=== PATIENT | male | born 1995 | race Caucasian/White ===

== ENCOUNTER → 2019-11-14 | Emergency (ER) | payer SELFPAY ==
[~2019-11-14] VITALS: Ht 180.3 cm; Wt 121.6 kg
[~2019-11-14] MED LIST: CLINDAMYCIN HC150 MG PO
--- NOTE | 2019-11-14 10:32 | Emergency Department Note ---
History of Present Illnes History of Present Illness Chief Complaint: General Medicine Complaints History of Present Illness This is a 24 year old male Chief Complaint Comment PATIENT IN FROM HOME WITH COMPLAINTS OF AN ABSCESS TO LOWER BACK; STATES STARTED ON WEDNESDAY AND IS GETTING BIGGER AND MORE PAINFUL. Historian: Patient Arrival Mode: Car Onset (how long ago): day(s) (3) Location: Lower back Quality: Sharp Radiation: Reports non-radiation Severity: mild Onset quality: gradual Duration (how long): day(s) (3) Timing of current episode: constant Progression: worsening Chronicity: new Context: Denies recent illness, Denies recent surgery Relieving factors: none Exacerbating factors: none Associated symptoms: Reports denies other symptoms Treatments prior to arrival: none Past Medical/Family History Physician Review I have reviewed the patient's past medical and family history. Any updates have been documented here. Past Medical History Recent Fever: No Clinical Suspicion of Infectio: No New/Unexplained Change in Ment: No Past Medical History: None Past Surgical History: None Social History Smoking Cessation: Never Smoker Counseling Performed: No Alcohol Use: Social Any Illegal Drug Use: Yes (MARIJUANA) Other Any Pre-Existing Lines (PICC,: No Review of Systems Review of Systems Constitutional: Reports no symptoms EENTM: Reports no symptoms Cardiovascular: Reports no symptoms Respiratory: Reports no symptoms Gastrointestinal: Reports no symptoms Genitourinary: Reports no symptoms Musculoskeletal: Reports no symptoms Integumentary: Reports as per HPI Neurological: Reports no symptoms Psychological: Reports no symptoms Endocrine: Reports no symptoms Hematological/Lymphatic: Reports no symptoms Physical Exam Related Data Allergies: Coded Allergies: Penicillins (Verified Allergy, Unknown, 11/14/19) amoxicillin (Verified Allergy, Unknown, 11/14/19) Triage Vital Signs Vital Signs Date Time Temp Pulse Resp B/P (MAP) Pulse Ox O2 Delivery O2 Flow Rate FiO2 11/14/19 10:15 98.8 81 18 152/80 99 Room Air Vital signs reviewed: Yes Physical Exam CONSTITUTIONAL Constitutional: Present well-developed, Present well-nourished HENT HENT: Present normocephalic, Present atraumatic, Present oropharynx clear/moist, Present nose normal HENT L/R: Present left ext ear normal, Present right ext ear normal EYES Eyes: Reports PERRL, Reports conjunctivae normal NECK Neck: Present ROM normal PULMONARY Pulmonary: Present effort normal, Present breath sounds normal CARDIOVASCULAR Cardiovascular: Present regular rhythm, Present heart sounds normal, Present capillary refill normal, Present normal rate GASTROINTESTINAL Abdominal: Present soft, Present nontender, Present bowel sounds normal GENITOURINARY Genitourinary: Present exam deferred SKIN Skin: Present warm, Present dry, Present lesion (Abscess midline, lower back) MUSCULOSKELETAL Musculoskeletal: Present ROM normal NEUROLOGICAL Neurological: Present alert, Present oriented x 3, Present no gross motor or sensory deficits PSYCHOLOGICAL Psychological: Present mood/affect normal, Present judgement normal Procedures Procedures Procedure: Pilonidal abscess drained with 11 blade scalpel after 1% lidocaine 5mL administered. Large amount of purulent drainage noted. Packed with iodoform gauze. Assessment & Plan Medical Decision Making MDM 24-year-old male presents for large pilonidal abscess. This was drained as noted in the procedure note. He'll be prescribed clindamycin and will follow up with his primary care doctor for packing removal. Reassessment Reassessment time: 11:25 Reassessment Well appearing, NAD Assessment & Plan Final Impression: (1) Pilonidal abscess Depart Disposition: HOME, SELF-CARE Last Vital Signs Date Time Temp Pulse Resp B/P (MAP) Pulse Ox O2 Delivery O2 Flow Rate FiO2 11/14/19 10:15 98.8 81 18 152/80 99 Room Air Home Meds Active Scripts Clindamycin Hcl (CLINDAMYCIN HCL) 150 Mg Capsule, 450 MG PO TID for 7 Days, #84 0 Refills 2 TABS PO TID Prov:JESSICA ELIZABETH MD 11/14/19 JESSICA ELIZABETH MD Nov 14, 2019 10:32
--- NOTE | 2019-11-20 16:28 | Progress Note ---
DATE: SUBJECTIVE: Mr. Carlos is doing well. There is no new complaint. OBJECTIVE: GENERAL: He is alert and comfortable. VITALS: Stable, currently afebrile. HEENT: He is not icteric. NECK: Supple. CHEST: Crackles. HEART: S1 and S2. ABDOMEN: Soft. Bowel sounds present. EXTREMITIES: No edema. IMPRESSION: 1. Metabolic encephalopathy, slowly getting better. 2. Clostridium difficile colitis, to finish 3 weeks of oral vancomycin. 3. Congestive heart failure. 4. Peripheral vascular disease. 5. Followup daily discharge planning per Internal Medicine. MD STEFAN Bahena/MODL /[id number]
== END | disposition home or self-care (01) ==
LOC: ER 11:23
DX: L05.01 Pilonidal cyst with abscess (principal)
CPT/HCPCS: 99283